=== PATIENT | male | born 1955 | race Caucasian/White ===

== ENCOUNTER 2020-04-24 12:24 | Outpatient (CLI) | payer MEDICARE, MEDICAID | END 2020-04-24 23:59 | disposition home or self-care (01) | LOC: RT 12:24 | DX: R06.02 Shortness of breath (principal) | CPT/HCPCS: 94010 ==

== ENCOUNTER 2022-05-31 09:25 | Emergency (ER) | payer MEDICARE, MEDICAID ==
[~2022-05-31] VITALS: Ht 165.1 cm; Wt 81.8 kg
[~2022-05-31 09:25] MED LIST: ALBU18HF2; ASPI-611 PO; BUDE10.2 PO; CETI10TA14 PO; CYAN50003 PO; DIPH25CA83 PO; FLUT16SP26 BOTHNARES; HYDR25TA5 PO; MULT-1085 PO; NAPR-996 PO; SIMV-45 PO; TIOT18CA3 INH
[2022-05-31 09:34] VITALS: BP 175/100
== END 2022-05-31 12:28 | disposition left against medical advice (07) ==
LOC: ER 09:25
DX: R10.9 Unspecified abdominal pain (principal); Z53.21 Procedure and treatment not carried out due to patient leaving prior to being seen by health care provider; Z79.82 Long term (current) use of aspirin; Z79.899 Other long term (current) drug therapy

== ENCOUNTER 2022-06-02 11:49 | Emergency (ER) | payer MEDICARE, MEDICAID ==
[~2022-06-02] VITALS: Ht 165.1 cm; Wt 81.4 kg
[2022-06-02 15:28] LABS: BASOPHILS # (AUTO) 0.1 X10'3 (0-0.2); BASOPHILS % (AUTO) 0.5 % (0-1); EOSINOPHILS # (AUTO) 0.2 X10'3 (0-0.9); EOSINOPHILS % (AUTO) 1.5 % (0-6); HEMATOCRIT 40.3 % (42.0-52.0); HEMOGLOBIN 13.8 g/dl (14.0-17.9); LYMPHOCYTES # (AUTO) 2.8 X10'3 (1.1-4.8); LYMPHOCYTES % (AUTO) 19.4 % (21-51); MEAN CORPUSCULAR HEMOGLOBIN 28.1 PG (27.0-31.0); MEAN CORPUSCULAR HGB CONC 34.3 g/dL (33.0-36.5); MEAN CORPUSCULAR VOLUME 82.1 FL (78-98); MEAN PLATELET VOLUME 8.1 FL (7.4-10.4); MONOCYTES # (AUTO) 0.9 X10'3 (0-0.9); MONOCYTES % (AUTO) 6.5 % (2-12); NEUTROPHILS # (AUTO) 10.3 X10'3 (1.8-7.7); NEUTROPHILS % (AUTO) 72.1 % (42-75); PLATELET COUNT 527 X10'3 (140-440); RED BLOOD COUNT 4.91 X10'6 (4.70-6.10); RED CELL DISTRIBUTION WIDTH 13.8 % (11.5-14.5); WHITE BLOOD COUNT 14.3 X10'3 (4.5-11.0)
[2022-06-02 15:37] LABS: ALANINE AMINOTRANSFERASE 33 U/L (12-78); ALBUMIN 2.9 G/DL (3.4-5.0); ALBUMIN/GLOBULIN RATIO 0.5 (1.1-1.5); ALKALINE PHOSPHATASE 63 IU/L (46-116); ANION GAP 9 (8-16); ASPARTATE AMINO TRANSFERASE 25 U/L (10-37); BILIRUBIN,TOTAL 0.3 MG/DL (0.1-1.0); BLOOD UREA NITROGEN 11 MG/DL (7-18); BUN/CREATININE RATIO 11.7 (5.4-32.0); CALCIUM 9.8 MG/DL (8.5-10.1); CHLORIDE 102 MMOL/L (99-107); CREATININE 0.94 MG/DL (0.60-1.10); GLUCOSE 100 MG/DL (70-104); LIPASE 108 U/L (73-393); POTASSIUM 3.6 MMOL/L (3.5-5.1); SODIUM 141 MMOL/L (135-145); TOTAL CARBON DIOXIDE 29.9 MMOL/L (24-32); TOTAL PROTEIN 8.4 G/DL (6.4-8.2); eGFR 80 ML/MIN
[2022-06-02 20:05] VITALS: BP 180/103
--- NOTE | 2022-06-02 20:07 | NUR ---
PT IS BACK IN LOBBY, C/O LOWER ABD PAIN, REFERRED TO ER BY PMD FOR ABSCESS IN ABD, PT
--- NOTE | 2022-06-02 20:09 | NUR ---
PT SAID HE HAS BEEN EATING TODAY, NO N/V, HAS HAD 5 BOWEL MOVEMENTS WELL
[2022-06-02] MEDS ORDERED: piperacillin/tazo 3.375gm/50ml 50 ML IV STA (21:22)
[2022-06-02] MEDS ORDERED: LEVO750T46 PO (22:59)
[2022-06-02] MEDS ORDERED: METR-159 PO (22:59)
[2022-06-02] MEDS ORDERED: ACET650T58 PO (23:04)
[2022-06-02] MEDS ORDERED: metroNIDAZOLE 500mg tablet PO ONE (23:05)
[2022-06-02] MEDS ORDERED: levoFLOXACIN 750MG TABLET PO ONE (23:05)
--- NOTE | 2022-06-02 23:50 | NUR ---
PT SEEN AND DC'D BY PROVIDER
== END 2022-06-02 23:52 | disposition home or self-care (01) ==
LOC: ER 13:56
DX: K57.92 Diverticulitis of intestine, part unspecified, without perforation or abscess without bleeding (principal); Z79.82 Long term (current) use of aspirin; Z79.899 Other long term (current) drug therapy
CPT/HCPCS: 36415; 74176; 80053; 83690; 85025; 99284